=== PATIENT | male | born 2000 | race Caucasian/White ===

== ENCOUNTER 2023-05-24 16:47 | Emergency (ER) | payer SELFPAY ==
--- NOTE | ~2023-05-24 | XR_ITS ---
EXAM: XR hand RT min 3V DATE: 05/24/2023 18:00 HISTORY: SMASHING INJURY TO RIGHT INDEX DIGIT TODAY . COMPARISON: None available. FINDINGS: Normal mineralization. No fracture or dislocation. No lytic or blastic lesion. Joint space s are maintained. No erosion or periosteal change. Soft tissues within normal limits. IMPRESSION: No acute osseous finding the right hand. Reviewed, dictated and finalized at location [facility]
[2023-05-24 16:51] VITALS: BP 132/90; PULSE 94; RESP 18; TEMP 36.3; O2SAT 100
--- NOTE | 2023-05-24 17:48 | ED.GENADULT ---
HPI - General Adult General Chief complaint: Wound/Laceration Stated complaint: finger Time Seen by Provider: 05/24/23 17:28 Source: patient Mode of arrival: ambulatory Limitations: no limitations History of Present Illness HPI narrative: This is a 23-year-old male who presents to the ED with chief complaint of right index finger injury. Patient states he was helping lift truck bed and when his friend said it down he had not like go yet which caught his finger between 2 pieces of metal. Reports laceration to the palmar side of the index finger. Reports pain in that area. Denies any further sites of pain or injury. Related Data Allergies Allergy/AdvReac Type Severity Reaction Status Date / Time No Known Allergies Allergy Unverified 04/21/12 09:48 Review of Systems Review of Systems: All systems as dictated in HPI Exam Narrative: GENERAL: Well-appearing, well-nourished, and in no acute distress. HEAD: Normocephalic, atraumatic. EYES: PERRLA and EOMI. ENT: Nares clear, no rhinorrhea or epistaxis. Mucous membranes moist. Oropharynx without tonsillar hypertrophy exudate or other lesions. NECK: Supple. No adenopathy or masses. CHEST: No respiratory distress. Clear to auscultation. No wheezes rales or rhonchi HEART: Regular rate and rhythm. No murmur heard. Normal peripheral pulses. ABDOMEN: Soft, nontender, nondistended, normal active bowel sounds. MSK: Right hand range of motion slightly reduced due to pain of the index finger. Minimal tenderness to palpation. No bruising. Neurovascularly intact distally. SKIN: Irregular, jagged 3 cm laceration to the palmar side of the index finger of the right hand. No active bleeding. NEURO: Alert and oriented x3. No focal deficits. PSYCH: Normal mood and affect. Course Vital Signs Vital signs: Vital Signs Temperature 97.3 F L 05/24/23 16:51 Pulse Rate 94 05/24/23 16:51 Respiratory Rate 18 05/24/23 16:51 Blood Pressure 132/90 05/24/23 16:51 Pulse Oximetry 100 05/24/23 16:51 Oxygen Delivery Room Air 05/24/23 16:51 Temperature 97.3 F L 05/24/23 16:51 Pulse Rate 94 05/24/23 16:51 Respiratory Rate 18 05/24/23 16:51 Blood Pressure 132/90 05/24/23 16:51 Pulse Oximetry 100 05/24/23 16:51 Oxygen Delivery Room Air 05/24/23 16:51 Procedures Laceration Laceration 1: Date: 05/24/23 Time: 18:44 Site: hand Side (If applicable): right (index finger) Size (cm): 3 Description: irregular Depth: simple, single layer Local Anesthetic: lidocaine 1% Amount of anesthesia used (mL): 2 Pre-repair: wound explored, irrigated extensively and deep structures intact ====== Skin Level ====== Skin layer closed with: nylon and dermabond Size (cm): 5-0 Number of sutures: 3 Technique: simple, interrupted ====== Subcutaneous Layer ====== ====== Muscle Layer ====== ====== Tendon Layer ====== Dressing: non adherent, kerlix Medical Decision Making MDM Narrative Medical decision making narrative: This is a 23-year-old male who presents to the ED for chief complaint of right index finger laceration. Vitals are normal. Exam shows palmar right index finger lacerations proximal finger. Irregular in nature. X-rays are negative for any acute osseous findings. Wounds were cleaned and irrigated here in the department. Tetanus updated. The wound was closed with nylon and Dermabond. Laceration instructions given. Pt will be discharged in stable condition. Return precautions given and supportive measures discussed. Pt is understanding and agreeable with plan for discharge and follow-up with PCP. Vital Signs Vital Signs: Vital Signs Temperature 97.3 F L 05/24/23 16:51 Pulse Rate 94 05/24/23 16:51 Respiratory Rate 18 05/24/23 16:51 Blood Pressure 132/90 05/24/23 16:51 Pulse Oximetry 100 05/24/23 16:51 Oxygen Del
[2023-05-24] MEDS: TETANUS,DIPHTHERIA,AC PERTUSSIS ADULT (0.5 ML) BOOSTRIX IM (18:03)
== END 2023-05-24 19:04 | disposition home or self-care (01) ==
PROVIDERS: Emergency Provider Physician Assistant; PCP Physician Assistant
DX: S61.210A Laceration without foreign body of right index finger without damage to nail, initial encounter (principal); Z23 Encounter for immunization; W23.2XXA Caught, crushed, jammed or pinched between a moving and stationary object, initial encounter
CPT/HCPCS: 12002; 73130; 90471; 90715; 99283